=== PATIENT | female | born 1950 | race Caucasian/White ===

== ENCOUNTER → 2016-11-10 | Outpatient (CLI) | payer MEDICARE, BC ==
[~2016-11-10] MED LIST: ATORVASTATIN CA10 MG PO; CELEXA PO; FLEXERIL PO; IBUPROFEN600 MG PO; MUSCLE RELAXANT PO; NEURONTIN PO; NEURONTIN300 MG PO; ROBAXIN500 MG PO; SINGULAIR PO; ULTRAM PO; VESICARE PO
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
== END | disposition home or self-care (01) ==
LOC: SMAM 11:35
DX: Z12.31 Encounter for screening mammogram for malignant neoplasm of breast (principal); T85.43XA Leakage of breast prosthesis and implant, initial encounter; Z98.82 Breast implant status
CPT/HCPCS: G0202